=== PATIENT | female | born 1990 | race Caucasian/White ===

== ENCOUNTER 2022-07-06 21:01 | Outpatient (CLI) | payer OTHER, SELFPAY ==
--- NOTE | 2022-07-06 21:28 | PM.OBTRLD ---
Visit Information Visit Information Date of evaluation: 07/06/22 Primary OB Provider: Esha Salazar On-call OB Provider: Esha Salazar Reason for Evaluation: Yes other Comments/Additional reasons for admission: 32YO @ 03wsp1ging by 11wks US who presents for feeling unwell with a high resting heart rate at home. Unsure if she got herself worked up and anxious or if something is actually wrong. care w/ CNM complicated by GHTN diagnosed 2 days ago. Labetalol Rx was sent, but she has not started it yet. Has growth and BPP US scheduled in the AM and IOL scheduled for 07/12/22. No CALL, vision changes or RUQ pain. Vital Signs Vital Signs: BP 131/91 (Repeat 138/77), HR 107, SpO2 100% on RA, T 36.7C Temporal PFSH Medical History (Updated 07/06/22 @ 21:43 by Esha Salazar CNM) Anxiety Depression Fibromyalgia Family History (Updated 07/06/22 @ 21:42 by Esha Salazar CNM) Mother Hypertension Sister Hypertension Social History (Updated 07/06/22 @ 21:42 by Esha Salazar CNM) marital status: number of children: 3 household members: spouse and children lives independently: Yes housing: house Review of Systems Review of Systems ROS: Yes All systems reviewed with the patient and are negative except as otherwise documented Exam Vital Signs (past 8 hours): see above Chest Chest: normal inspection of the chest Resp Effort & Inspection: normal respiratory effort Auscultation: clear to auscultation bilaterally Cardio Rate: regular rate Rhythm: regular rhythm Presentation: vertex Evaluation Evaluation Baseline heart rate: 150 Variability: Moderate (11-25) monitor accelerations: Present Monitor Decelerations: Absent Contraction Frequency (minutes): 6 Uterine Contraction Intensity: Mild Category of Tracing: Reactive Comments: CE deferred Diagnosis, Plan/Disposition Final Diagnosis (1) Anxiety: Status: Acute Plan/Disposition Plan: Patient calmed and felt better with reassurance of normal VS and reassuring FHR. D/C to home with routine precautions and encouragement to start her labetalol and keep the plan as previously scheduled. OB Disposition: home
== END 2022-07-06 21:42 | disposition home or self-care (01) ==
LOC: OB 07-14 16:40
PROVIDERS: Referring Provider Nurse Practitioner Obstetrics & Gynecology; Visit Provider Nurse Practitioner Obstetrics & Gynecology
DX: O13.3 Gestational [pregnancy-induced] hypertension without significant proteinuria, third trimester (principal); O99.343 Other mental disorders complicating pregnancy, third trimester; F41.9 Anxiety disorder, unspecified; Z3A.36 36 weeks gestation of pregnancy
CPT/HCPCS: 59025; G0378; G0379

== ENCOUNTER → 2022-07-07 07:57 | Outpatient (CLI) | payer OTHER, SELFPAY ==
--- NOTE | 2022-07-07 | DI.US.S_ITS ---
PROCEDURE: US OB LIMITED INDICATIONS: GESTATIONAL DIABETES - GROWTH BIOPHYSICAL OUTSIDE/PRIOR DATING DATA: Last menstrual period (LMP): Unknown LMP-based estimated date of delivery (SHELLY): Unknown First dating scan (date and location): 07/07/2022 Estimated date of delivery (SHELLY) from first dating scan: 10/03/2021 TECHNIQUE: Real-time scanning was performed of the fetus, with image documentation and biometric measurements. Biophysical profile was also obtained. Endovaginal scanning: Not performed. COMPARISON: None. FINDINGS: General: A single living intrauterine gestation is present. Presentation: Vertex Placenta: Placental position is posterior right. Lower placental margin not evaluated. Amniotic fluid index: 12.5 cm, normal range is 5-24 cm. Single deepest vertical pocket is 5.8 cm. heart rate: 158 beats per minute. Maternal cervical canal: Not well visualized. biometrics: Biparietal diameter: 9.0 cm, 36 weeks 2 days Head circumference: 31.8 cm, 35 weeks 6 days Abdominal circumference: 33.2 cm, 37 weeks 0 days Femur length: 6.9 cm, 35 weeks 2 days Clinically estimated gestational age: N/A Composite gestational age from present scan: 36 weeks 1 day Estimated weight and percentile: 2925 grams Biophysical profile: Tone: 2 points. Movement: 2 points. Respiration: 0 points. Largest pocket of fluid: 2 points. IMPRESSION: 1. Single live intrauterine with estimated gestational age of 36 weeks 1 day. Estimated weight is 2925 grams. 2. Amniotic fluid index is 12.5 cm. 3. Biophysical profile score 6 of 8, with 0 points for respiration. We strive to produce accurate, complete, and clear reports of imaging services. To assist us in improving patient care, this report was composed using standard report templates and voice recognition software. Therefore, it may contain abnormal punctuation, insertions and/or omissions. Occasional wrong-word or sound-alike substitutions may occur. Though we review the report and make efforts to correct it, we do recommend that the report be read carefully in proper context to recognize any text inaccuracies. Approved by: Markell Iverson M.D. on 07/07/2022 at 8:59
== END ==
PROVIDERS: Referring Provider Nurse Practitioner Obstetrics & Gynecology; Visit Provider Nurse Practitioner Obstetrics & Gynecology
DX: O13.3 Gestational [pregnancy-induced] hypertension without significant proteinuria, third trimester (principal); Z3A.36 36 weeks gestation of pregnancy
CPT/HCPCS: 76815; 76819

== ENCOUNTER 2022-07-11 07:05 | Inpatient (IN) | payer OTHER, SELFPAY ==
--- NOTE | 2022-07-11 07:21 | P.HPOB_ITS ---
OB HPI Date/Time Date of admission: 07/11/22 Date Patient Seen: 07/11/22 Time Patient Seen: 07:21 History of Present Condition Chief complaint: INDUCTION : 4 Para: 3 Estimated Date of Delivery: 07/29/22 Estimated Gestational Age (weeks): 37.3 Narrative: Tracy Lima is a 32 year old female at 37w3d, SHELLY 07/29/22 by LMP and 11wk US, who presents with partner Serjio to L&D at 0710 for IOL for GHTN. She denies vaginal bleeding, LOF, or regular and painful uterine contractions. Denies CALL, visual changes, RUQ pain, or edema. Membranes intact. Indications Indication for induction OB: gestational HTN/pre-eclampsia Other reason(s) for admission: IOL for GHTN History of Present care: good care, initiated at week # (11), number of visits (7) and pounds weight gain (1) Dating criteria: LMP confirmed by 1st trimester US Ultrasounds: normal 1st trimester US and normal mid trimester US Obstetrical complications: gestational hypertension Medical complications: none Narrative: AGA concordant w/ LMP and confirmed with first trimester TA US, SHELLY 07/30/2022. history significant for anemia (pt was diagnosed with thalassemia in 2019) at 32 wks (HCT 27.3, Hgb 9.4), FeSO4 supplementation started. Pt is Rh-, declines Rhogam because FOB is Rh-. US at 36w3d ENMA 12.5cm, BPP score 6/8 with 0 points for respiration. Anemia, thalassemia - taking FeSO4 Hx of - started on LDASA after 12 weeks Preadmission Labs Blood type: A (-) negative -: Antibody screen: negative, GBS status: positive, HBsAG: negative, HIV: negative and RPR/VDLR: negative -: Chlamydia screen: not detected and Gonorrhea screen: not detected -: Rubella: immune and Varicella: immune HCT: 28.4 HCAB: negative PAP: Normal 1 hr GTT: 103 Prior (ies) History: Hx (P1,P2) and PPH (P3), MFM consultation declined by pt. NSVB x 3. 2012: contractions at 36 weeks, diagnosed with preeclampsia, delivered at 36w. 2015: PPROM @ 34w, augmented with Pitocin, delivered at 34w. Baby to NICU x 4 da ys for initial respiratory distress. 2020: uncomplicated , received progesterone x 1, PPH, declined blood transfusion. Evaluation Evaluation Baseline heart rate: 140 Variability: Moderate (11-25) monitor accelerations: Present Monitor Decelerations: Absent Status: Category l Dilation (cm): 4 Effacement (%): 60 Dilation: 3-4 cm Effacement: 60-70% station: -2 Position of cervix: posterior Consistency: soft Beltran score: 7 Comments: Baseline FHR 140 Variability Moderate Accels Present Category 1 Tracing Reassuring Status Dilation 4cm Effacement 60% station -2 Position of cervix posterior Consistency soft Beltran score 7 Membranes Intact [facility] Medical History Anxiety Depression Fibromyalgia Family History Mother Hypertension Sister Hypertension Social History marital status: number of children: 3 household members: spouse and children lives independently: Yes housing: house Smoking Status: Former smoker Meds Home Medications and Allergies Home Medications Medication Instructions Recorded Confirmed Type labetalol 100 mg tablet mg 07/11/22 History tramadol 50 mg tablet mg 07/11/22 History Allergies Allergy/AdvReac Type Severity Reaction Status Date / Time No Known Drug Allergies Allergy Verified 07/11/22 07:52 Review of Systems Review of Systems ROS: Yes All systems reviewed with the patient and are negative except as otherwise documented OB Exam Narrative Exam Narrative: VS: BP 136/79, HR 74bpm, T 36.5C Temporal Resp Effort & Inspection: normal respiratory effort Auscultation: clear to auscultation bilaterally Cardio Rate: regular rate Rhythm: regular rhythm Heart Sounds: S1 normal and S2 normal Presentation: vertex Objective Labs Result Diagrams: 07/11/22 08:25 Assessment and Plan Assessment and Plan Assessment and Plan narrative: A: Term multipara IOL for GHTN Rh negative Category I FHR GBS prophylaxis indicated P: Admit for IOL with pitocin, per protocol. Continuous EFM. Ampicillin for GBS now and will consider AROM after adequate tx. Pain: the pt wants to be coaxed to stick to my plan of no epidural Reassess in 4-6 hours or PRN, provide labor support and position changes
[2022-07-11 07:43] VITALS: BP 144/84
[2022-07-11] MEDS: LACTATED RINGERS 1,000 ML 100 ML IV ×2 (08:30→15:03)
[2022-07-11 08:45] LABS: Add Manual Diff / Slide Review NO; Basophils Absolute Auto 0 /uL (0-100); Basophils Percent Auto 0.4 % (0-2); Eosinophils Absolute Auto 0 /uL (0-450); Eosinophils Percent Auto 0.3 % (2-4); Hematocrit 25.4 % (36-46); Hemoglobin 8.5 g/dL (12.0-16.0); Lymphocytes Absolute Auto 1100 /uL (1100-4500); Lymphocytes Percent Auto 14.4 % (25-40); Mean Corpuscular HGB Conc 33.6 % (30-36); Mean Corpuscular Hemoglobin 28.7 PG (26-34); Mean Corpuscular Volume 85.3 fL (80-100); Monocytes Absolute Auto 400 /uL (0-900); Monocytes Percent Auto 5.4 % (3-14); Neutrophils Absolute Auto 5900 /uL (1500-7000); Neutrophils Percent Auto 79.5 % (50-75); Platelet Count 185 X10^3/uL (150-400); Red Blood Cell Count 2.98 X10^6/uL (4.0-5.2); Red Cell Distribution Width 14.3 % (11.6-14.8); White Blood Cell Count 7.4 X10^3/uL (4.5-11.0)
[2022-07-11 08:57] LABS: COVID19 -Nasal RAPID Negative (Negative)
[2022-07-11] MEDS: OXYTOCIN PREMIX 30 UNIT/500 ML PLAST..BAG IV (09:15)
[2022-07-11] MEDS: AMPICILLIN 2,000 MG in SODIUM CHLORIDE 0.9% 100 ML 200 MG IV (09:43)
--- NOTE | 2022-07-11 12:16 | PM.OBPNLAB ---
Date/Time Date Patient Seen: 07/11/22 Time Patient Seen: 12:22 Pain Control Pain control: tolerating well Comments: Pt sleeping, ate breakfast, not aware of contractions at this time. VSS BP: 121/82mmHg, HR: 94bpm, T:36.5C, Pelvic Exam Dilation (cm): 4 Effacement (%): 60 station: -2 Amniotic membrane status: Intact Comments: CE deferred Contractions Contractions on admission: none Monitor mode: External Pitocin rate (mU/min): 5 Contraction frequency (min): 0 Contraction pattern: Absent Contraction intensity: Mild Status status: Category l Heart Rate Baseline: 140 Monitor Accelerations: Present Monitor Decelerations: Absent Monitor Variability: Moderate Assessment and Plan Assessment: induction ongoing Plan: continuous present management Comments: A: Term multipara IOL for GHTN- onging Rh negative GBS prophylaxis indicated Cat I FHR P: Continue IOL with pitocin, increase per protocol, continuous FHR monitoring. Ampicillin started at 0943, Repeat Q4 hours until delivery, pt will be adequately treated at 1343 Consider AROM Reasess in 2 hours or sooner PRN
[2022-07-11] MEDS: AMPICILLIN 1,000 MG in SODIUM CHLORIDE 0.9% 100 ML 200 MG IV (13:37)
--- NOTE | 2022-07-11 16:00 | PM.OBPNLAB ---
Date/Time Date Patient Seen: 07/11/22 Time Patient Seen: 15:45 Pain Control Pain control: tolerating well Comments: Pt sitting on ball with TENS unit, tolerating contractions well, states pain is 6/10, can feel contractions increasing in intensity. Took home PO tramadol dose. Is interested in nitrous oxide as next pain intervention. Wants to get things going and is open to AROM at this time. VSS BP 141/81mmHg, HR 71 bpm, T: 36.8C Pelvic Exam Dilation (cm): 6 Effacement (%): 75 station: -2 Amniotic membrane status: Ruptured (AROM, copious clear fluid) Contractions Monitor mode: External Pitocin rate (mU/min): 9 Contraction frequency (min): 3 Contraction pattern: Regular Contraction intensity: Moderate Status status: Category l Heart Rate Baseline: 145 Monitor Accelerations: Present Monitor Decelerations: Absent Monitor Variability: Moderate Assessment and Plan Comments: A: Active labor at this time IOL ongoing BP stable GBS adequately treated Category I FHR P: Labor support as needed Continue pitocin per protocol Continue ampicillin Reassess in 4 hours or sooner as needed
[2022-07-11 17:50] VITALS: BP 161/77; PULSE 65
[2022-07-11] MEDS: LABETALOL 100 MG TABLET PO (17:50)
--- NOTE | 2022-07-11 18:25 | PM.OBPRVD ---
Events: Induced HTN Labor & Delivery Delivery date: 07/11/22 Intrapartal Events: None Cervical ripening method: none Induction method: per pitocin protocol Delivery augmentation: rupture of membranes Delivery monitor: external FHT and external uterine Route of delivery: Episiotomy description: None L&D Laceration Description: None Quantitative Blood Loss: 200 Anesthesia Type: Other (Nitrous Oxide) Narrative: IOL for GHTN on labetalol 100mg PO BID with stable BPs throughout labor. Intense labor after AROM, patient requested nitrous oxide which provided moderate pain relief. NSVB of a vigorous baby boy in LOP position, sommersaulted through a single loose nuchal cord. was passed through maternal legs with patient in side lying position and placed on maternal abdomen for drying and skin to skin. After several minutes of delayed cord clamping, remaining 30 units of Pitocin in 500mL LR was increased to 300mL/hr for AMTSL. With signs of placental separation, cord was double clamped by SNM and cut by FOB. Gentle cord traction and single maternal push led to spontaneous, Schultze delivery for an apparently intact placenta, membranes and 3VC. Fundus immediately firm and bleeding minimal. Vagina and perineum inspected and intact. Cord blood sample was drawn off of the placenta. QBL 200mL. Nitrous oxides utilized for pain relief for several minutes after the . Both mother and baby stable and skin to skin as I left the room. Baby 1: gender: Male Presentation: vertex Position: Left Occiput Posterior Placenta delivery description: Spontaneous Cord Vessel Description: 3 Vessels, Nuchal Cord and Loose score (1 min): 8 score (5 min): 9 weight: 3.039 kg Narrative: Plan for aftercare: Routine care
[2022-07-11 18:28] VITALS: BP 144/86; PULSE 71
[2022-07-11] MEDS: KETOROLAC 30 MG/ML VIAL IV (19:37)
[2022-07-12] MEDS: IBUPROFEN 600 MG TABLET PO (04:33)
[2022-07-12 06:19] LABS: Hematocrit 24.3 % (36-46); Hemoglobin 8.1 g/dL (12.0-16.0); Mean Corpuscular HGB Conc 33.5 % (30-36); Mean Corpuscular Hemoglobin 28.6 PG (26-34); Mean Corpuscular Volume 85.4 fL (80-100); Platelet Count 164 X10^3/uL (150-400); Red Blood Cell Count 2.84 X10^6/uL (4.0-5.2); Red Cell Distribution Width 14.2 % (11.6-14.8); White Blood Cell Count 8.7 X10^3/uL (4.5-11.0)
--- NOTE | 2022-07-12 08:15 | P.DS_ITS ---
Discharge Providers Provider Date of admission: 07/11/22 07:05 Discharge Date: 07/12/22 Primary care physician: Esha Salazar CNM Consults: 07/12/22 17:10 Consult to [employer] Box [employer] Routine Comment: Discharge provider: Esha Salazar CNM Summary Hospital Course Date Patient Seen: 07/12/22 Time Patient Seen: 08:15 Diagnoses: O80.0 Hospital Course: PPD1: Stable s/p NSVB with intact perineum. Voiding, ambulating and breast feeding independently. No dizziness, not feeling light headed with position changes or movement. Tolerating a general diet. Vaginal bleeding is light without clots. Pain is well controlled with PO medication. Desires discharge to home [place]. Peripartum Data Infant Delivery Method: Natural Vaginal Laceration Description: None Episiotomy description: None [place] 1: Gender: Male Disposition of : home Discharge Diagnosis (1) Encounter for full-term uncomplicated delivery: Status: Acute Problem Details: Routine PP course (2) Gestational hypertension affecting fourth : Status: Acute Problem Details: BP improved after delivery, now stable without antihypertensive medication (3) Anemia affecting fourth : Status: Acute Problem Details: stable Status at Discharge Cognitive/behavioral status at discharge: oriented and calm Functional status at discharge: independent ambulation Overall status at discharge: patient is progressing back to baseline Time Spent with Patient Time attestation: Total time spent providing and/or coordinating discharge services: Objective Labs Result Diagrams: 07/12/22 06:06 Labs: Laboratory Results - last 24 hr 07/11/22 07/11/22 07/11/22 08:08 08:25 08:25 WBC 7.4 RBC 2.98 L Hgb 8.5 L Hct 25.4 L MCV 85.3 MCH 28.7 MCHC 33.6 RDW 14.3 Plt Count 185 Neut % (Auto) 79.5 H Lymph % (Auto) 14.4 L Russell % (Auto) 5.4 Eos % (Auto) 0.3 L Baso % (Auto) 0.4 Neut # (Auto) 5900 Lymph # (Auto) 1100 Russell # (Auto) 400 Eos # (Auto) 0 Baso # (Auto) 0 SARS-CoV-2 (PCR) Negative Blood Type A Negative Antibody Screen Negative 07/12/22 06:06 WBC 8.7 RBC 2.84 L Hgb 8.1 L Hct 24.3 L MCV 85.4 MCH 28.6 MCHC 33.5 RDW 14.2 Plt Count 164 Neut % (Auto) Lymph % (Auto) Russell % (Auto) Eos % (Auto) Baso % (Auto) Neut # (Auto) Lymph # (Auto) Russell # (Auto) Eos # (Auto) Baso # (Auto) SARS-CoV-2 (PCR) Blood Type Antibody Screen Exam Vital Signs (past 8 hours): BP 125/79, HR 89bpm, RR 16/min, T 97.6F Temporal Other: Fundus firm @ U-1, lochia scant, no clots. Perineum intact Discharge Plan Discharge Plan Patient Disposition: Home Provider Discharge Comment: after lunch if BP remains stable Discharge orders & Medications Prescriptions: New ibuprofen 600 mg Tablet 600 mg PO Q6HR PRN (Reason: Pain, Mild (1-3)) 14 Days Qty: 60 0RF Continued tramadol 50 mg tablet 100 mg PO BID Discontinued labetalol 100 mg tablet 100 mg PO 1-2XD Label Comments: Take 1 tablet By Mouth twice a day Follow up/Referrals: Esha Salazar CNM [Primary Care Provider] - (Follow-up phone call scheduled 07/24/22 @ 1pm Follow-up office visit 08/22/22 @ 10:45am) Diet/Activity/Treatments Diet: Regular Activity: pelvic rest x 6 weeks. No heavy lifting x 4 weeks. Skin/Wound/Dressing Care Report to your healthcare provider any signs of infection, such as:: chills, fever, increased pain, unusual drainage and unusual redness Visit Report/Discharge Packet Instructions: DI for Depression, DI for Prescription Opioid Use Discharge Data Primary Care Provider: Esha Salazar Attending Provider: Esha Salazar
[2022-07-12 10:38] VITALS: BP 125/79; PULSE 71; RESP 20; TEMP 36.4
[2022-07-12 12:24] VITALS: BP 125/79; PULSE 71; RESP 20; TEMP 36.4
== END 2022-07-12 12:35 | disposition home or self-care (01) | DRG 807 ==
PROVIDERS: Admitting Provider Nurse Practitioner Obstetrics & Gynecology; PCP Nurse Practitioner Obstetrics & Gynecology; Referring Provider Nurse Practitioner Obstetrics & Gynecology; Visit Provider Nurse Practitioner Obstetrics & Gynecology
DX: O13.4 Gestational [pregnancy-induced] hypertension without significant proteinuria, complicating childbirth (principal); Z37.0 Single live birth; Z3A.37 37 weeks gestation of pregnancy; O99.824 Streptococcus B carrier state complicating childbirth; O99.02 Anemia complicating childbirth; Z20.822 Contact with and (suspected) exposure to COVID-19
CPT/HCPCS: 36415; 59050; 85025; 85027; 86850; 86900; 86901; 87635; C9803; G0379; J0290; J1885; J2590

== ENCOUNTER → 2024-04-30 12:30 | Outpatient (CLI) | payer OTHER, SELFPAY ==
--- NOTE | 2024-04-30 12:31 | DI.US.S_ITS ---
PROCEDURE: US OB >= 14 WEEKS FETUS INDICATIONS: ANATOMY SCAN OUTSIDE/PRIOR DATING DATA: Last menstrual period (LMP): 11/30/2023. LMP-based estimated date of delivery (SHELLY): 09/05/2024. First dating scan (date and location): 04/30/2024. Estimated date of delivery (SHELLY) from first dating scan: 09/01/2024. The calculations are made using the clinical SHELLY of 09/05/2024. TECHNIQUE: Real-time scanning was performed of the fetus, with image documentation and biometric measurements. COMPARISON: None. FINDINGS: General: A single living intrauterine gestation is present. Presentation: Transverse. Placenta: Placental position is anterior , without previa. Amniotic fluid index: 16.1 cm, normal range is 5-24 cm. Single deepest vertical pocket is 4 point cm. heart rate: 162 beats per minute. Maternal cervical canal: 3 point cm long. Normal lower limit is 2.5 cm. biometrics: Biparietal diameter: 5.1 cm 21 weeks 4 days Head circumference: 20.0 cm 22 weeks 1 day Abdominal circumference: 19.2 cm 23 weeks 6 days Femur length: 3.7 cm 21 weeks 4 days Clinically estimated gestational age: 21 weeks 5 days Composite gestational age from present scan: 22 weeks 2 days Estimated weight and percentile: 531 g 91st percentile Anatomic survey: Neuro: Ventricles are non-dilated at less than 10 mm. Cisterna magna is normal at 3-11 mm. Cerebellum is normal in size and morphology. Nuchal skin fold: Normal at less than 6 mm between 14-21 weeks gestational age. Face: Nose and lips, facial profile are not well seen. Spine: No evidence for spina bifida. Heart: 4-chambered heart is present, with normal ventricular outflow tracts. Diaphragm: Diaphragm is intact. Stomach: Left-sided stomach is present. Kidneys: No hydronephrosis. Normal is less than 5 mm in 2nd trimester, less than 7 mm in 3rd trimester. Cord: 3-vessel cord has orthotopic insertion. Bladder: Normal in size. Extremities: All 4 extremities identified. IMPRESSION: Single live intrauterine with ultrasound gestational age today 22 weeks 2 days. profile is not well seen. Recommend follow-up. We strive to produce accurate, complete, and clear reports of imaging services. To assist us in improving patient care, this report was composed using standard report templates and voice recognition software. Therefore, it may contain abnormal punctuation, insertions and/or omissions. Occasional wrong-word or sound-alike substitutions may occur. Though we review the report and make efforts to correct it, we do recommend that the report be read carefully in proper context to recognize any text inaccuracies. Dictated by: Jennifer James M.D. on 04/30/2024 at 22:46 Approved by: Jennifer James M.D. on 04/30/2024 at 22:48
== END ==
PROVIDERS: Referring Provider Advanced Practice Midwife; Visit Provider Advanced Practice Midwife
DX: Z34.82 Encounter for supervision of other normal pregnancy, second trimester (principal); Z3A.22 22 weeks gestation of pregnancy
CPT/HCPCS: 76811

== ENCOUNTER → 2024-08-13 18:21 | Outpatient (ROUT) | payer OTHER, SELFPAY ==
[2024-08-13 19:27] LABS: Add Manual Diff / Slide Review NO; Basophils Absolute Auto 0 /uL (0-100); Basophils Percent Auto 0.2 % (0-2); Eosinophils Absolute Auto 0 /uL (0-450); Eosinophils Percent Auto 0.1 % (2-4); Hematocrit 37.1 % (36-46); Hemoglobin 12.4 g/dL (12.0-16.0); Lymphocytes Absolute Auto 800 /uL (1100-4500); Lymphocytes Percent Auto 9.9 % (25-40); Mean Corpuscular HGB Conc 33.5 % (30-36); Mean Corpuscular Hemoglobin 32.3 PG (26-34); Mean Corpuscular Volume 96.5 fL (80-100); Monocytes Absolute Auto 300 /uL (0-900); Monocytes Percent Auto 3.3 % (3-14); Neutrophils Absolute Auto 7100 /uL (1500-7000); Neutrophils Percent Auto 86.5 % (50-75); Platelet Count 198 X10^3/uL (150-400); Red Blood Cell Count 3.85 X10^6/uL (4.0-5.2); Red Cell Distribution Width 20.5 % (11.6-14.8); White Blood Cell Count 8.2 X10^3/uL (4.5-11.0)
[2024-08-13 20:45] LABS: Anisocytosis 1+; Macrocytosis 1+
== END ==
PROVIDERS: Visit Provider Advanced Practice Midwife
DX: O90.81 Anemia of the puerperium (principal); Z3A.36 36 weeks gestation of pregnancy; Z36.85 Encounter for antenatal screening for Streptococcus B
CPT/HCPCS: 85025; 87653

== ENCOUNTER 2024-08-14 07:44 | Inpatient (IN) | payer OTHER, SELFPAY ==
[2024-08-14] MEDS: LACTATED RINGERS 1,000 ML 100 ML IV (08:04)
--- NOTE | 2024-08-14 08:18 | PM.OBHP.1 ---
OB HPI Date/Time Date of admission: 08/14/24 Date Patient Seen: 08/14/24 Time Patient Seen: 08:18 History of Present Condition Chief complaint: L&D : 5 Para: 4 Estimated Date of Delivery: 09/05/24 Estimated Gestational Age (weeks): 36w6d Narrative: Tracy Lima is a 34 year old female at 36w6d by LMP and confirmed by early ultrasound. Tracy called with painful contractions that started approx 0600 at 3 min apart and very intense, and decided by 0700 to head to the hospital, desiring an epidural. Requested nitrous oxide for support prior to and during epidural placement and after delivery. Tracy had an overall uncomplicated with CNMs, took tramodol daily due to history of horse accident and fibromyalgia. Tracy also has a history of depression and anxiety. GBS unknown so order from 08/13/24 changed to STAT and antibiotics started after using shared decision making. History of Present care: good care and initiated at week # (8) Dating criteria: based on 1st trimester US only Ultrasounds: normal 1st trimester US and normal mid trimester US Obstetrical complications: labor Medical complications: none Preadmission Labs Blood type: A (-) negative -: Antibody screen: negative, Cystic fibrosis screen: negative, GBS status: positive, HIV: negative, HSV 1: negative, HSV 2: negative and RPR/VDLR: negative -: Chlamydia screen: not detected and Gonorrhea screen: not detected -: Rubella: immune and Varicella: immune HCT: 31.6 HCAB: negative PAP: Normal Cell-free DNA: Negative Urine: Negative with trace blood 1 hr GTT: 91 Narrative: SMA negative Prior (ies) Hx # Term Pregnancies: 5 Hx # Pregnancies: 2 Number of Living Children: 4 Multiple births: 0 Spontaneous abortions: 0 Elective abortions: 0 Evaluation Evaluation Baseline heart rate: 135 Variability: Moderate (11-25) monitor accelerations: Present Monitor Decelerations: Absent Contraction Frequency (minutes): 2 (1-3) Uterine Contraction Intensity: Strong/Firm Status: Category l Dilation (cm): 8 Effacement (%): 90 Dilation: >/=5 cm Effacement: >/=80% station: -1 Position of cervix: anterior Consistency: soft Beltran score: 12 [facility] Medical History (Updated 08/14/24 @ 12:37 by Marietta Ramirez CNM, ARNP) Menstrual migraine Anemia affecting fifth Thalassemia Fibromyalgia Depression Anxiety Family History Mother Hypertension Stroke Cancer Thyroid disease Depression Sister Hypertension Thyroid disease Other Kidney disease Social History (Updated 08/14/24 @ 12:40 by Marietta Ramirez CNM, ARNP) marital status: number of children: 4 household members: spouse and children lives independently: Yes housing: house pets and animals: Yes Smoking Status: Former smoker Meds Home Medications and Allergies Home Medications Medication Instructions Recorded Confirmed Type tramadol 50 mg tablet 100 mg PO BID 07/11/22 08/14/24 History Allergies Allergy/AdvReac Type Severity Reaction Status Date / Time No Known Drug Allergies Allergy Verified 07/11/22 07:52 Review of Systems Review of Systems Narrative: Negative except as mentioned in HPI OB Exam Vital signs Blood Pressure: 131/82 (BPs during labor were very labile, with lowest 117/71 and up to 164/104) Pulse Rate: 93 Respiratory Rate: 16 Temperature: 97.5 F Resp Effort & Inspection: normal respiratory effort and able to speak in complete sentences Cardio Rate: regular rate Rhythm: regular rhythm GI Inspection: normal to inspection External Female Exam: Yes normal external appearance Presentation: vertex Estimated Weight (lbs): 7 Amniotic Fluid: no fluid Objective Labs 08/14/24 08:04 08/14/24 10:30 Assessment and Plan Assessment and Plan Assessment and Plan narrative: A: @ 36w6d Admit to L&D Active labor GBS status unknown, antibiotics indicated Rhogam indicated Intact membranes Cat 1 P: PET panel collected Initiate antiboitics, awaiting GBS results Pt requested epidural on the way to the hospital, anesthesia paged Pt requests nitrous until anesthesia is available Anticipated NSVB Continuous monitoring Time-Based Coding :: [TOTAL MINUTES] spent with patient and on the chart (including review of chart, obtaining history, exam, reviewing outside data, placing orders, documenting exam and treatment plan, and counseling patient) on [DATE].
[2024-08-14 08:26] LABS: Add Manual Diff / Slide Review NO; Basophils Absolute Auto 0 /uL (0-100); Basophils Percent Auto 0.4 % (0-2); Eosinophils Absolute Auto 0 /uL (0-450); Eosinophils Percent Auto 0.2 % (2-4); Hematocrit 35.4 % (36-46); Hemoglobin 12.1 g/dL (12.0-16.0); Lymphocytes Absolute Auto 1100 /uL (1100-4500); Lymphocytes Percent Auto 13.8 % (25-40); Mean Corpuscular Hemoglobin 32.4 PG (26-34); Mean Corpuscular Volume 95.3 fL (80-100); Monocytes Absolute Auto 400 /uL (0-900); Monocytes Percent Auto 4.9 % (3-14); Neutrophils Absolute Auto 6400 /uL (1500-7000); Neutrophils Percent Auto 80.7 % (50-75); Platelet Count 185 X10^3/uL (150-400); Red Blood Cell Count 3.72 X10^6/uL (4.0-5.2); Red Cell Distribution Width 19.6 % (11.6-14.8); White Blood Cell Count 7.9 X10^3/uL (4.5-11.0)
[2024-08-14] MEDS: AMPICILLIN 2,000 MG in SODIUM CHLORIDE 0.9% 100 ML 200 MG IV (08:42)
[2024-08-14] MEDS: CALCIUM CARBONATE 500 MG TAB 1000 MG PO (09:11)
--- NOTE | 2024-08-14 09:32 | PM.AN.REGBLK ---
Regional Block Pre-procedure Procedure: Continuous Lumbar Epidural for L&D Attending OB provider: Marietta Ramirez PMH/ROS narrative: ,dil 8cm desires epidural. Epidurals with previous deliveries worked well. Patient has a hx of fibromyalgia, chronic pain, on tramadol. Otherwise neg ROS. PSH/Anesthesia history narrative: none Exam narrative: Normal ASA Class: II Labs: Hct 35.4 % (36-46) L 08/14/24 08:04 Plt Count 185 X10^3/uL (150-400) 08/14/24 08:04 Medications: Current Medications Generic Name Dose Route Start Last Admin Trade Name Freq PRN Reason Stop Dose Admin Calcium Carbonate 1,000 mg 08/14/24 08:13 08/14/24 09:11 Calcium Carbonate 500 Mg Tab PO 1,000 mg Q2HR PRN Administration Dyspepsia Carboprost Tromethamine 250 mcg 08/14/24 08:13 Carboprost 250 Mcg/Ml Ampul IM Q90M PRN Bleeding Oxytocin/Lactated Ringer's 30 unit in 500 mls @ 200 mls/hr 08/14/24 08:13 Oxytocin Premix IV CONT PRN Bleeding Protocol Tranexamic Acid 1,000 mg/ 100 mls @ 600 mls/hr 08/14/24 08:13 Sodium Chloride IV NOW PRN Bleeding Lactated Ringer's 1,000 mls @ 100 mls/hr 08/14/24 08:15 08/14/24 08:04 Lactated Ringers IV 08/14/24 18:14 100 mls/hr CONT JAKE Administration Lidocaine HCl 20 ml 08/14/24 08:13 Lidocaine 1% 20 Ml INJ INTRA-OP PRN Post Delivery Methylergonovine Maleate 0.2 mg 08/14/24 08:13 Methylergonovine 0.2 Mg Tablet PO Q6HR PRN Heavy Bleeding Methylergonovine Maleate 0.2 mg 08/14/24 08:13 Methylergonovine 0.2 Mg/Ml Vial IM NOW PRN Bleeding Mineral Oil 30 ml 08/14/24 08:13 Mineral Oil 30 Ml Udc TOP PRN PRN Version Misoprostol 800 mcg 08/14/24 08:13 Misoprostol 200 Mcg Tablet MI NOW PRN Bleeding Misoprostol 400 mcg 08/14/24 08:13 Misoprostol 200 Mcg Tablet SL NOW PRN Bleeding Naloxone HCl 0.2 mg 08/14/24 08:13 Naloxone 0.4 Mg/Ml Vial IV Q2MIN PRN Opiate Reversal Ondansetron HCl 4 mg 08/14/24 08:13 Ondansetron 4 Mg/2 Ml Inj IV Q4HR PRN Nausea And Vomiting Oxytocin 10 unit 08/14/24 08:13 Oxytocin 10 Unit/Ml Vial IM NOW PRN Bleeding Allergies: Allergies Allergy/AdvReac Type Severity Reaction Status Date / Time No Known Drug Allergies Allergy Verified 07/11/22 07:52 Procedure Insertion date: 08/14/24 Insertion time: 08:50 Prep/Local: 1% lidocaine (chlorhexadine skin prep, dry x 3 min) Interspace: L4-5 Patient position: sitting Needle: 17 gauge Tuohy Loss of resistance with: saline ADELINA at (cm): 6 Catheter placed at SKIN (cm): 13 Catheter in SPACE (cm): 7 Sensory level: T10 Insertion: No CSF, No Blood, No Paresthesia with insertion, No Paresthesia with injection and No Test dose reaction Initial Medications TEST DOSE time: 09:00 BOLUS DOSE time: 09:07 BOLUS DOSE (mL): 5 BOLUS DOSE med: other (pump solution) Infusion Initial rate (mL/hr): 10 Post-procedure Anesthesia date START: 08/14/24 Anesthesia time START: 08:50 Anesthesia date END: 08/14/24 Anesthesia time END: 10:49 Post-procedure Anesthesia Assessment: Yes CV function: HR/BP stable, Yes Resp function: RR/sat/airway adequate, Yes Post-op hydration adequate, Yes Pain control adequate, Yes Nausea & vomiting absent, Yes Temperature > 36 C, Yes Mental status appropriate and Yes Anesthesia complications
[2024-08-14 10:45] LABS: Strep Grp B PCR POS for Grp B Strep
[2024-08-14 10:54] LABS: Alanine Aminotransferase 21 IU/L (<35); Albumin 3.5 g/dL (3.5-5.0); Albumin Globulin Ratio 1.3 (1.0-2.8); Alkaline Phosphatase 128 U/L (38-126); Aspartate Aminotransferase 32 IU/L (14-36); BUN Creatinine Ratio 11.9 (6-22); Bilirubin Total 0.6 mg/dL (0.2-1.3); Blood Urea Nitrogen 8 mg/dL (7-17); Calcium 9.5 mg/dL (8.4-10.2); Carbon Dioxide 18 mmol/L (22-32); Chloride 109 mmol/L (98-107); Estimated Glomerular Filt Rate > 60 mL/min (>60); Globulin 2.6 g/dL (1.7-4.1); Glucose 100 mg/dL (70-100); HEMOLYSIS < 15 (0-50); Sodium 134 mmol/L (137-145); Total Protein 6.1 g/dL (6.3-8.2)
--- NOTE | 2024-08-14 11:33 | P.PCNOB_ITS ---
Events: Labor < 37 wks (36w6d) Labor & Delivery Delivery date: 08/14/24 Delivery Time: 10:49 Intrapartal Events: None Cervical ripening method: none Induction method: none Delivery augmentation: rupture of membranes Delivery monitor: external FHT Route of delivery: Episiotomy description: None L&D Laceration Description: Labial and Superficial Delivery repair: other (none) Estimated blood loss (mL): 591 Anesthesia Type: Epidural Narrative: Labor progressed well. Tracy felt the spontaneous urge to push early due to bulging bag of water and pushing was not effective. Anterior lip noted and attempted to reduce. Pushing still not effective, so AROM of forebag for copious fluid at 1017. Then, Tracy was able to push effectively. FHR was Cat 1 throughout 2nd stage. Head delivered OA, baby was grimacing and breathing. NSVB of baby at 1049, shoulders and abdomen delivered with support/traction from CNM and SNM, but there was NO shoulder dystocia. Baby was passed through maternal legs after drying and stimulation. When Tracy was ready, she rolled over to her back and pulled her baby to her chest. Apgars 8/9. They remained skin to skin while placenta was delivered and cord was cut. Placenta delivered spontaneously with maternal efforts and appeared to be intact. Cord with 3 vessels was clamped by CARTER and cut by Serjio at 10 minutes of life after cord pulsing had stopped and placenta had delivered. Cord blood collected and sent to the lab. Perineum inspected and found to be intact, with shallow periurethral lacerations noted bilaterally. Blood loss measured and estimated loss is 591 mL. Mom and baby were stable, skin to skin and when I left the room. Tracy and Serjio are thrilled to meet their baby. Marietta GONZALEZP, CNM, IBCLC [place] Baby 1: gender: Male Presentation: vertex Position: Right Occiput Anterior Placenta delivery description: Expressed Cord Vessel Description: 3 Vessels score (1 min): 8 score (5 min): 9 weight: 3.602 kg Plan for aftercare: Routine care
[2024-08-14] MEDS: WITCH HAZEL/GLYCERIN PADS 1 EACH TOP (12:17)
[2024-08-14] MEDS: DERMOPLAST SPRAY 20% 60 ML 1 SPRAY TOP (12:17)
[2024-08-14] MEDS: LANOLIN OINT 7 GM 1 APPLIC TOP (12:17)
[2024-08-14 12:44] VITALS: PULSE 93; RESP 16; TEMP 36.4
[2024-08-14 12:54] VITALS: BP 131/82
[2024-08-14 13:09] VITALS: BP 131/82
[2024-08-14] MEDS: FAMOTIDINE 20 MG/2 ML VIAL IV (13:59)
[2024-08-14] MEDS: ACETAMINOPHEN 325 MG TABLET 650 MG PO ×2 (14:07→21:15)
[2024-08-14] MEDS: ONDANSETRON 4 MG/2 ML INJ IV (14:11)
[2024-08-14] MEDS: KETOROLAC 30 MG/ML VIAL IV (14:57)
[2024-08-14] MEDS: IBUPROFEN 600 MG TABLET PO (21:13)
[2024-08-15] MEDS: CALCIUM CARBONATE 500 MG TAB 1000 MG PO ×2 (01:43→10:24)
[2024-08-15] MEDS: ACETAMINOPHEN 325 MG TABLET 650 MG PO (06:40)
[2024-08-15] MEDS: IBUPROFEN 600 MG TABLET PO ×2 (06:40→12:11)
--- NOTE | 2024-08-15 12:13 | PM.OBDS.1 ---
Discharge Providers Provider Date of admission: 08/14/24 07:44 Discharge Date: 08/15/24 Primary care physician: Tyler Phelps MD Consults: 08/14/24 08:13 Consult to Anesthesiology Urgent Comment: Consulting Provider: Anesthesiologist Reason for consultation: Epidural Has provider been notified: Yes 08/15/24 11:30 Consult to Real Estate Attorney Routine Comment: Discharge provider: Marietta Ramirez CNM, ARNP Summary Hospital Course Date Patient Seen: 08/15/24 Time Patient Seen: 12:14 Diagnoses: O80 Hospital Course: Admitted in active labor at 36w6d and proceeded to anterior lip prior to AROM. NSVB of viable baby boy. QBL 591 mL. course complicated by HTN so labetalol initiated prior to discharge. Peripartum Data Delivery Method: Natural Vaginal 1: Gender: Male Disposition of : home Discharge Diagnosis (1) Labile blood pressure: Status: Acute (2) (normal spontaneous vaginal delivery): Status: Acute (3) delivery: Status: Acute (4) Gestational hypertension affecting fifth : Start Date: 08/14/24 Start Time: 08:46 Status: Acute Problem Details: Normotensive until labor, and then BPs labile during labor and . Labetalol initiated prior to discharge home. Status at Discharge Cognitive/behavioral status at discharge: oriented and calm Functional status at discharge: independent ambulation Overall status at discharge: patient is progressing back to baseline Time Spent with Patient Time attestation: Total time spent providing and/or coordinating discharge services: Time spent: Less than 30 minutes Specific discharge activities: discharge teaching Objective Labs 08/15/24 12:42 08/15/24 12:42 Exam Other: Fundus firm at U, midline. Lochia scant Perineum intact with minimal edema Discharge Plan Discharge Plan Patient Disposition: Home Provider Discharge Comment: Follow up with eap specialist for precautions and recommendations for Tramadol use while . Discharge orders & Medications Prescriptions: Continued tramadol 50 mg tablet 100 mg PO BID Follow up/Referrals: Tyler Phelps MD [Primary Care Provider] - Marietta Ramirez CNM, ARNP [Advanced Border Inspector] - 3-5 Days (3 days for BP check 2 weeks and 6 weeks as scheduled) Diet/Activity/Treatments Diet: Regular Diet comment: Iron rich foods, protein 3-4 times a day, increase fiber and fluid Activity: [place] activity level for two weeks Cold/Heat Therapy: As desired on perineum and low back Skin/Wound/Dressing Care Report to your healthcare provider any signs of infection, such as:: chills, fever, increased pain, unusual drainage and unusual redness Visit Report/Discharge Packet Stand Alone Forms: Patient Portal/API, Stroke Signs & Symptoms Discharge Data Primary Care Provider: Tyler Phelps
[2024-08-15] MEDS: LANOLIN OINT 7 GM 1 APPLIC TOP (12:24)
[2024-08-15 13:24] VITALS: BP 147/84
[2024-08-15] MEDS: LABETALOL 100 MG TABLET PO (13:24)
[2024-08-15 13:27] LABS: Add Manual Diff / Slide Review NO; Basophils Absolute Auto 0 /uL (0-100); Basophils Percent Auto 0.1 % (0-2); Eosinophils Absolute Auto 0 /uL (0-450); Eosinophils Percent Auto 0.5 % (2-4); Hematocrit 26.6 % (36-46); Hemoglobin 9.2 g/dL (12.0-16.0); Lymphocytes Absolute Auto 1000 /uL (1100-4500); Lymphocytes Percent Auto 14.4 % (25-40); Mean Corpuscular HGB Conc 34.5 % (30-36); Mean Corpuscular Volume 95.6 fL (80-100); Monocytes Absolute Auto 300 /uL (0-900); Monocytes Percent Auto 4.1 % (3-14); Neutrophils Absolute Auto 5900 /uL (1500-7000); Neutrophils Percent Auto 80.9 % (50-75); Platelet Count 146 X10^3/uL (150-400); Red Blood Cell Count 2.78 X10^6/uL (4.0-5.2); Red Cell Distribution Width 19.7 % (11.6-14.8); White Blood Cell Count 7.3 X10^3/uL (4.5-11.0)
[2024-08-15 13:31] LABS: Alanine Aminotransferase 20 IU/L (<35); Albumin Globulin Ratio 1.3 (1.0-2.8); Alkaline Phosphatase 96 U/L (38-126); Aspartate Aminotransferase 34 IU/L (14-36); BUN Creatinine Ratio 13.6 (6-22); Bilirubin Total 0.2 mg/dL (0.2-1.3); Blood Urea Nitrogen 11 mg/dL (7-17); Calcium 9.4 mg/dL (8.4-10.2); Carbon Dioxide 25 mmol/L (22-32); Chloride 107 mmol/L (98-107); Estimated Glomerular Filt Rate > 60 mL/min (>60); Globulin 2.4 g/dL (1.7-4.1); Glucose 79 mg/dL (70-100); HEMOLYSIS < 15 (0-50); Potassium 4.3 mmol/L (3.4-5.1); Sodium 133 mmol/L (137-145); Total Protein 5.4 g/dL (6.3-8.2)
[2024-08-15 14:11] VITALS: BP 147/84; PULSE 93; RESP 16; TEMP 36.4
== END 2024-08-15 14:30 | disposition home or self-care (01) | DRG 807 ==
PROVIDERS: Admitting Provider Advanced Practice Midwife; PCP Internal Medicine; Referring Provider Advanced Practice Midwife; Visit Provider Advanced Practice Midwife
DX: O99.824 Streptococcus B carrier state complicating childbirth (principal); Z37.0 Single live birth; O13.4 Gestational [pregnancy-induced] hypertension without significant proteinuria, complicating childbirth; O60.14X0 Preterm labor third trimester with preterm delivery third trimester, not applicable or unspecified; Z3A.36 36 weeks gestation of pregnancy
CPT/HCPCS: 36415; 59050; 80053; 85025; 86850; 86900; 86901; 87653; G0379; J0290; J1885; J2405